=== PATIENT | male | born 1985 | race Caucasian/White ===

== ENCOUNTER 2021-01-31 21:31 | Emergency (ER) | payer MEDICAID ==
[~2021-01-31] VITALS: Ht 182.9 cm; Wt 81.8 kg
[~2021-01-31 21:31] MED LIST: NO HOME MEDS
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
--- NOTE | 2021-01-31 22:00 | NUR ---
pt can be reached at [phone]
--- NOTE | 2021-01-31 22:45 | NUR ---
stanum 3.1 phoebe notified
[2021-01-31 22:50] LABS: BASOPHILS # (AUTO) 0.1 X10'3 (0-0.2); BASOPHILS % (AUTO) 0.8 % (0-1); EOSINOPHILS # (AUTO) 0.3 X10'3 (0-0.9); EOSINOPHILS % (AUTO) 2.5 % (0-6); HEMATOCRIT 41.4 % (42.0-52.0); HEMOGLOBIN 13.7 g/dl (14.0-17.9); LYMPHOCYTES # (AUTO) 2.1 X10'3 (1.1-4.8); LYMPHOCYTES % (AUTO) 16.8 % (21-51); MEAN CORPUSCULAR HEMOGLOBIN 28.7 PG (27.0-31.0); MEAN CORPUSCULAR HGB CONC 33.1 g/dL (33.0-36.5); MEAN CORPUSCULAR VOLUME 86.7 FL (78-98); MEAN PLATELET VOLUME 6.7 FL (7.4-10.4); MONOCYTES # (AUTO) 0.7 X10'3 (0-0.9); MONOCYTES % (AUTO) 5.6 % (2-12); NEUTROPHILS # (AUTO) 9.4 X10'3 (1.8-7.7); NEUTROPHILS % (AUTO) 74.3 % (42-75); PLATELET COUNT 369 X10'3 (140-440); RED BLOOD COUNT 4.78 X10'6 (4.70-6.10); RED CELL DISTRIBUTION WIDTH 12.8 % (11.5-14.5); WHITE BLOOD COUNT 12.6 X10'3 (4.5-11.0)
[2021-01-31 23:00] LABS: ALANINE AMINOTRANSFERASE 30 U/L (12-78); ALBUMIN 3.8 G/DL (3.4-5.0); ALBUMIN/GLOBULIN RATIO 1.1 (1.1-1.5); ALKALINE PHOSPHATASE 97 IU/L (46-116); ANION GAP 6 (8-16); ASPARTATE AMINO TRANSFERASE 12 U/L (10-37); BILIRUBIN,TOTAL 0.3 MG/DL (0.1-1.0); BLOOD UREA NITROGEN 15 MG/DL (7-18); BUN/CREATININE RATIO 14.4 (5.4-32.0); CHLORIDE 106 MMOL/L (99-107); CREATININE 1.04 MG/DL (0.60-1.10); GLUCOSE 136 MG/DL (70-104); POTASSIUM 3.3 MMOL/L (3.5-5.1); SODIUM 141 MMOL/L (135-145); TOTAL CARBON DIOXIDE 29.3 MMOL/L (24-32); TOTAL PROTEIN 7.2 G/DL (6.4-8.2); eGFR 81 ML/MIN
[2021-01-31 23:07] LABS: ETHANOL < 0.010 GM/DL (0.0-0.010)
[2021-01-31] MEDS ORDERED: naloxone 2mg/2ml inj IV STA ×2 (23:40→23:56)
--- NOTE | 2021-01-31 23:40 | NUR ---
PT STIL REFUSING TO GIVE URINE SAMPLE . TECHS AT BEDSIDE ASKING PT TO GIVE URINE SAMPLE PT YELLING AT THEM TELLING STAFF HE" WILL PEE ON US ALRIGHT " SPOKE TO PATIENT ABOUT PAST MEDICAL HISTORY , PT REPORTED HE DOES NOT HAVE A PAST MEDICAL HX PT ALSO ASKING TO BE LEFT ALONE
[2021-01-31] MEDS ORDERED: naloxone 2mg/2ml inj ONE (23:41)
[2021-01-31] MEDS ORDERED: normal saline 1000ML IV soln IVB ONE (23:45)
[2021-01-31] MEDS ORDERED: levetiracetam inj 1,000 MG in normal saline 100ml IV soln 90 ML IV STA (23:59)
[2021-02-01] MEDS ORDERED: LORazepam 2 mg/ml vial IV ONE
--- NOTE | 2021-02-01 | NUR ---
PT STILL YELLING AND BEING HOSTILE . OFFERED PT A BLANKET AND KIMDLY ASK PT TO STOP USING "FUCK AND pENIS" WHEN I SPOKE TO HIM . PT STATED HE WOULD BE QUIT IF HE HAD A BLANKET . COVERED PT WITH 2 BLANKETS . ALL VSS
[2021-02-01] MEDS ORDERED: levetiracetam-NS 1000mg/100ml 100 ML IV ONE (00:05)
[2021-02-01] MEDS ORDERED: normal saline 1000ML IV soln IVB ONE (00:05)
[2021-02-01] MEDS ORDERED: normal saline 1000ML IV soln IV ONE (00:05)
--- NOTE | 2021-02-01 00:12 | NUR ---
Pt given blanket, then quickly after found to be unresponsive and bradycardic with low RR. NPA inserted with no response. Pt transferred to room 4 and prepped for intubation. BVM used to bag pt at 2345 at 15 breaths per minute. Vitals taken Pulse, 51 BP 142/92, BVM at 15 bpm, Spo2 100%. Pt still unresponsive at this time, cool, pale with blue tinged extremities. 100 of Rocuronium given at 2354 20 of Etomidate given at 2354 ET tube inserted to 24mm at the teeth 2L NS bolus initiated. additional 1L NS initiated. Vitals pulse 89, BP1 Addendum: 02/01/21 at 0016 by AL Vitals cont: pulse 89, BP 165/105, RR 20, 100% spo2 Temp stout inserted OG tube inserted Positive gastric flow to og tube attached to suction soft restraints applied to upper extremities at 0003. Pt attached to ventilator.
--- NOTE | 2021-02-01 00:20 | NUR ---
PT UP FOR DISCHARGE . PT LAYING IN BED SUPINE ON SENIOR INFORMATION DEVELOPER . WENT TO BEDSIDE TO REPOSITION PATIENTS POSTION AND PATIENT UNRESPONSIVE . O2 SATS AT 98 % HR AT 58 RESP RATE 12 PRESSURE 129/68 PT NOT . PT NOT REPSONSIVE TO NAME OR STERNAL RUBE , CALL TOMMY Tinajero TO BEDSIDE . PA ASSISTED WITH PT PSOTION AND ALSO UNABLE TO GET PATIENT TO RESPOND . AIRWAY PATENT O2 SATS 98 % . PT GIVEN NARCAN - PT REMAINED UNREPSONSIVE . STARTED IV TO THE RIGHT AC 20 GUAGE APPLIED O2 PER NC AT 4 L PERPAIRING TO TRANSFER PT TO ROOM 4 DR AKERS CALLED TO BEDSIDE .
--- NOTE | 2021-02-01 00:20 | NUR ---
PT RIGHT PUPIL FIXED AT C 4 L REPSONSIVE AT [address] CLEMENTS OF ASSESSMENT OF PUPILS
[2021-02-01 00:27] LABS: ABG BASE EXCESS -4.2 mmol/L (-2.0-2.0); ABG HCO3 20.2 mmol/L (22.0-26.0); ABG OXYGEN SATURATION 99.1 % (94-97); ABG PCO2 (T) 32.7 mmHg (35.0-48.0); ABG PO2 (T) 204.9 mmHg (75.0-100.0); ALLEN'S TEST POSITIVE; FCOHb 1.1 % (0.0-3.9); FMetHb 0.1 % (0.0-1.5); FO2Hb 97.9 % (94-97); PATIENT TEMPERATURE 35.3; RESPIRATORY RATE 14 b/min; TIDAL VOLUME 500 mL; TOTAL HEMOGLOBIN 13.5 G/dl (14.0-18.0)
--- NOTE | 2021-02-01 00:36 | NUR ---
pt to ct
[2021-02-01 00:52] LABS: URINE AMPHETAMINE SCREEN POSITIVE (Neg); URINE BARBITUATE SCREEN NEGATIVE (Neg); URINE BENZODIAZEPINES SCREEN NEGATIVE (Neg); URINE CANNABINOID SCREEN NEGATIVE (Neg); URINE COCAINE SCREEN NEGATIVE (Neg); URINE METHADONE SCREEN NEGATIVE (Neg); URINE OPIATE SCREEN NEGATIVE (Neg); URINE PHENCYCLIDINE SCREEN NEGATIVE (Neg)
[2021-02-01] MEDS ORDERED: sodium chloride 3% IV.soln 100 ML IV ONE (01:00)
--- NOTE | 2021-02-01 01:00 | NUR ---
PT HAD $20 FALL ON THE GROUND. PLACED IN SPECIAMN BAG LABELED, WITH NAME AND V NUMBER .
[2021-02-01] MEDS ORDERED: niCARdipine I.V. 50 MG in normal saline 250ml IV soln 230 ML IV SCH (01:10)
[2021-02-01] MEDS ORDERED: niCARDipine-NS 40mg/200ml IVPB 250 ML IV SCH (01:10)
--- NOTE | 2021-02-01 01:10 | NUR ---
Bladimir lima in EDM - 02/01/21 at 0301 by SHELBY PT RIGHT PUPIL FIXED AT C 4 L REPSONSIVE AT [address] CLEMENTS OF ASSESSMENT OF PUPILS
[2021-02-01 01:29] VITALS: BP 138/80
[2021-02-01 01:29] LABS: PARTIAL THROMBOPLASTIN TIME 24 SECONDS (22-32)
--- NOTE | 2021-02-01 01:40 | NUR ---
pt with intermittent spontaneous respirations and some movement of his mouth. Dr. Patiño updated and verbal received for versed 2 mg x1 now just prior to Tx to [facility].
[2021-02-01] MEDS ORDERED: etomidate 2mg/ml inj. IV ONE (01:45)
[2021-02-01] MEDS ORDERED: MIDAZolam 5mg/ml 2ml vial IV ONE (01:45)
--- NOTE | 2021-02-01 01:48 | NUR ---
Patient transferred to [facility] per EMS and RN- TIme of departure [id number]
[2021-02-01] MEDS ORDERED: rocuronium 10mg/ml inj IV ONE ×3 (02:20→23:54)
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
--- NOTE | 2021-02-07 05:09 | NUR ---
PT $20 STILL LEFT IN SPECIMAN BAG . FOUND IN LOST IN FOUND . GAVE SPECIAMN BAG TO REGISTRATION TO LOCK UP IN THE SAFE AND NOTIFIED FAMILY [employer]ERS IN DEMOGRAPHIC DATA THAT THE MONEY WAS PLACED IN THE SAFE JAMAR HARTLEY
== END 2021-02-01 01:44 | disposition short-term general hospital (02) ==
LOC: ER 21:32
DX: R56.9 Unspecified convulsions (principal); Z20.822 Contact with and (suspected) exposure to COVID-19; T43.625A Adverse effect of amphetamines, initial encounter; G89.29 Other chronic pain; F12.90 Cannabis use, unspecified, uncomplicated; F15.90 Other stimulant use, unspecified, uncomplicated; Z59.0 Homelessness; Z72.89 Other problems related to lifestyle; Z88.0 Allergy status to penicillin; Z88.1 Allergy status to other antibiotic agents; I60.9 Nontraumatic subarachnoid hemorrhage, unspecified; Y92.89 Other specified places as the place of occurrence of the external cause
CPT/HCPCS: 31500; 36415; 36600; 70450; 71045; 80053; 80305; 80320; 82550; 82803; 83605; 84145; 85018; 85025; 85610; 85730; 87040; 87070; 87635; 93005; 96365; 96367; 96372; 96375; 99291; C9803; J1953; J2060; J2250; J2310; J7030; J7131; 94002; 94760